=== PATIENT | male | born 2000 ===

== ENCOUNTER 2025-07-27 11:16 | Outpatient (CLI) | payer BC, SELFPAY | END 2025-07-27 11:17 | disposition home or self-care (01) | LOC: AMB 08-02 01:37 | PROVIDERS: Visit Provider Family Medicine | DX: K08.89 Other specified disorders of teeth and supporting structures (principal) | CPT/HCPCS: A0998 ==

== ENCOUNTER 2025-07-27 12:09 | Emergency (ER) | payer BC, SELFPAY ==
[2025-07-27 12:19] VITALS: BP 136/96; PULSE 81; RESP 18; TEMP 37; O2SAT 95; BMI 19.2
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
== END 2025-07-27 12:52 | disposition home or self-care (01) ==
LOC: ED 12:29
PROVIDERS: Emergency Provider Family Medicine
DX: K08.89 Other specified disorders of teeth and supporting structures (principal); W19.XXXA Unspecified fall, initial encounter
CPT/HCPCS: 99282; 99284